=== PATIENT | male | born 1990 | race Hispanic/Latino ===

== ENCOUNTER 2021-01-12 17:57 | Emergency (ER) | payer SELFPAY ==
[~2021-01-12] VITALS: Ht 165.1 cm; Wt 90.7 kg
== END 2021-01-12 21:07 | disposition home or self-care (01) ==
LOC: ED 17:57
DX: R51.9 Headache, unspecified (principal); R11.10 Vomiting, unspecified; F17.200 Nicotine dependence, unspecified, uncomplicated
CPT/HCPCS: 80053; 81001; 83735; 85025; 96374; 96375; 99284-25; J1200; J1885; J2405; J2765; J7121